=== PATIENT | male | born 1990 | race Caucasian/White ===

== ENCOUNTER 2021-06-10 14:17 | Emergency (ER) | payer MEDICAID, OTHER ==
[~2021-06-10] VITALS: Ht 180.3 cm; Wt 109.1 kg
[~2021-06-10 14:17] MED LIST: DOXY-412 PO; ESCI10TA45 PO
[2021-06-10] MEDS ORDERED: IBUP-1984 PO (20:06)
[2021-06-10] MEDS ORDERED: HYDROcodone/acetaminophen 5mg/325mg tablet PO ONE (20:15)
[2021-06-10 20:27] VITALS: BP 141/68
== END 2021-06-10 20:29 | disposition home or self-care (01) ==
LOC: ER 14:18
DX: M25.512 Pain in left shoulder (principal); R07.89 Other chest pain; Z72.89 Other problems related to lifestyle; Z79.899 Other long term (current) drug therapy; V87.7XXA Person injured in collision between other specified motor vehicles (traffic), initial encounter; Y93.89 Activity, other specified; Y92.89 Other specified places as the place of occurrence of the external cause; Y99.8 Other external cause status
CPT/HCPCS: 71250; 99284

== ENCOUNTER 2022-10-23 07:32 | Emergency (ER) | payer MEDICAID, OTHER ==
[~2022-10-23] VITALS: Ht 180.3 cm; Wt 106.0 kg
[2022-10-23 07:36] VITALS: BP 151/84
[2022-10-23] MEDS ORDERED: ceFAZolin 1gm IM kit IM ONE (09:00)
[2022-10-23] MEDS ORDERED: HYDR-3965 PO (09:43)
[2022-10-23] MEDS ORDERED: CLIN150C8 PO (09:43)
[2022-10-23] MEDS ORDERED: bacitracin 15gm ointment TP ONE (09:45)
== END 2022-10-23 10:14 | disposition home or self-care (01) ==
LOC: ER 07:33
DX: L02.511 Cutaneous abscess of right hand (principal)
CPT/HCPCS: 26010; 96372; 99283; A6222; J0690; A6449